=== PATIENT | female | born 1955 | race Caucasian/White ===

== ENCOUNTER 2017-07-07 08:41 | Outpatient (CLI) | payer MEDICARE, OTHER ==
--- NOTE | 2017-07-07 10:36 | RAD ---
LUMBAR SPINE FOUR VIEWS: 07/07/2017 HISTORY: Low back pain and left lower extremity radiculopathy/numbness. COMPARISON: 05/22/2016 FINDINGS: Mature bone graft material noted adjacent to the L4 and L5 vertebral bodies. Bilateral laminectomy c hanges are noted at L3, L4, and L5. On neutral lateral imaging, there is anterolisthesis of L3 on L4, measuring 9-10 mm, increased from 5 -6 mm on the prior study. With flexion, L3-L4 anterolisthesis measures approximately 1 cm and, with extension, measures approximately 1 cm. No acute fracture noted. IMPRESSION: 1. Approximately 1 cm of anterolisthesis at L3-L4, more conspicuous than on the prior exam. 2. Lower lumbar spine postoperative changes. POS: [facility]
--- NOTE | 2017-07-07 11:29 | CT ---
CT LUMBAR SPINE WITHOUT CONTRAST: Date: 07/07/17 Multiple axial tomograms obtained through lumbar spine with multiplanar reconstruction. HISTORY: Lumbar radiculopathy. Low back pain with numbness to right leg. FINDINGS: Lumbar vertebra maintain height and alignment. There is loss of disc space at L4-5 and at L5-S1. Ther e are postoperative changes of L3-4 with posterior laminectomy changes. Posterior bony fusion is note d at L4-5 and L5-S1. At L3-4 level, there is evidence of a diffuse disc bulge flattening the anterior thecal sac. This is slightly asymmetric to the left with left lateral extension. There is facet hypertrophy. These change s result in moderate central canal stenosis. At L4-5, there are posterior laminectomy changes on the right. No evidence of significant residual or recurrent disc bulge or protrusion. There is facet hypertrophy with mild central canal stenosis. At L5-S1, there is posterior laminectomy change. No residual or recurrent disc. Small osteophyte from the posterior vertebra at L4-5 level abuts anterior thecal sac centrally and could potentially conta ct either of the S1 nerve roots. No significant central canal stenosis. At L2-3, mild disc bulge with posterior hypertrophic changes result in mild to moderate central canal stenosis. At L1-2, no significant disc bulge. No significant central canal stenosis. IMPRESSION: 1. Postop changes, posterior laminectomy changes at L3-4, L4-5, and L5-S1, with posterior fusion cassie nges. 2. Evidence of diffuse disc bulge at L3-4 as described above. 3. Mild to moderate central canal stenosis at L2-3 as described. POS: [facility]
--- NOTE | 2017-07-07 14:20 | MRI ---
LUMBAR SPINE MRI WITH AND WITHOUT CONTRAST: Date: 07-07-17 Comparison: None. History: Low back pain, right lower extremity numbness. Prior lumbar spine surgeries. Technique: Multiplanar, multisequence MR imaging of the lumbar spine obtained with and without contra st. FINDINGS: Assuming five lumbar type vertebral bodies, the conus medullaris terminates at L1. No anterolisthesis or retrolisthesis is seen. STIR imaging demonstrates no focal area of osseous marrow edema. T12-L1: Mild bilateral facet hypertrophy. No central canal or neural foraminal stenosis. L1-2: Mild bilateral facet hypertrophy. Intervertebral disc height and signal intensity is within nor mal limits with no significant central canal or neural foraminal stenosis. L2-3: Moderate bilateral facet hypertrophy and hypertrophy of the ligamentum flavum with fluid within bilateral facet joints. Mild disc space narrowing and disc bulge with no significant central canal o r neural foraminal stenosis. L3-4: There is prominent bilateral facet hypertrophy with fluid within bilateral facet joints. The pa tient appears status post bilateral laminectomy. There is disc space narrowing, disc desiccation, and disc bulge with a central disc protrusion demons trating minimal superior migration. No associated central canal stenosis. Mild bilateral neural santosh inal stenosis. L4-5: There is disc space narrowing and disc desiccation. Patient appears status post right hemilamin ectomy. Bilateral facet hypertrophy with no significant central canal or neural foraminal stenosis. M ature bone graft material with fusion of facet joints noted bilaterally, left greater than right, at L4-5 and L5-S1. L5-S1: There is disc space narrowing and disc desiccation. There is a central/left paracentral tear w ith an associated left paracentral disc protrusion abutting the left S1 nerve root without displaceme nt or flattening. No significant central canal or neural foraminal stenosis. There is a stable right renal cyst when compared to CT lumbar spine dated 05-22-16. Post contrast imaging demonstrates no abnormal enhancement involving nerve roots of the cauda equina. No abnormal enhancement noted involving intervertebral discs or imaged osseous structures. IMPRESSION: Post-operative and degenerative changes within the lumbar spine as detailed above. POS: [facility]
[2017-07-07] MEDS ORDERED: Gadobenate Dimeglumine 529 MG/1 ML (20ML VIAL) ONE (17:25)
== END 2017-07-07 08:42 | disposition home or self-care (01) ==
LOC: TBSIIMAG 08:41
PROVIDERS: ATTEND Surgery
DX: M51.16 Intervertebral disc disorders with radiculopathy, lumbar region (principal); M47.26 Other spondylosis with radiculopathy, lumbar region; M43.16 Spondylolisthesis, lumbar region; M48.061 Spinal stenosis, lumbar region without neurogenic claudication; Z98.890 Other specified postprocedural states
CPT/HCPCS: 72110; 72131; 72158; A9579